=== PATIENT | female | born 1960 | race Caucasian/White ===

== ENCOUNTER 2016-11-30 20:10 | Emergency (ER) | payer BC ==
[2016-11-30] MEDS ORDERED: HYDROCHLOROTHIAZIDE 12.5 MG CAPSULE PO ONE (21:39)
[2016-11-30] MEDS ORDERED: PROMETHAZINE HCL 25 MG TABLET PO ONE (21:39)
[2016-11-30] MEDS ORDERED: LISINOPRIL 10 MG TABLET PO ONE (21:39)
[2016-11-30] MEDS ORDERED: HYDROCODONE/ACETAMINOPHEN 5-325 MG TABLET PO ONE (21:39)
--- NOTE | 2016-11-30 21:44 | ER Document Report ---
ED General - General Chief Complaint: Headache Stated Complaint: BLOOD PRESSURE PROBLEM Time Seen by Provider: 11/30/16 21:29 Notes: Patient is a 56 year old female that comes to the ED for chief complaint of elevated blood pressure and a headache. She also states she is getting over a cold. Symptoms began 4 days ago when she ran out of her lisinopril/HCTZ and prozac. She states that after coming to the ED her symptoms have actually significantly improved, states that she almost does not have a headache at all now. Patient denies dizziness, focal numbness or weakness, visual changes, chest pain, inability to urinate. Patient denies other past medical history other than hypertension and depression. TRAVEL OUTSIDE OF THE [place] IN LAST 30 DAYS: No - Related Data Allergies/Adverse Reactions: No Known Allergies Allergy (Unverified 11/30/16 20:34) Past Medical History - General Information source: Patient - Social History Smoking Status: Never Smoker Frequency of alcohol use: None Drug Abuse: None Lives with: Family Family History: Reviewed & Not Pertinent Patient has suicidal ideation: No Patient has homicidal ideation: No - Past Medical History Cardiac Medical History: Reports: Hx Hypertension Renal/ Medical History: Denies: Hx Peritoneal Dialysis Psychiatric Medical History: Reports: Hx Anxiety, Hx Depression Surgical Hx: Negative - Immunizations Hx Diphtheria, Pertussis, Tetanus Vaccination: Yes Review of Systems - Review of Systems Constitutional: No symptoms reported EENT: See HPI Cardiovascular: See HPI Respiratory: See HPI Gastrointestinal: No symptoms reported Genitourinary: No symptoms reported Female Genitourinary: No symptoms reported Musculoskeletal: No symptoms reported Skin: No symptoms reported Hematologic/Lymphatic: No symptoms reported Neurological/Psychological: See HPI Physical Exam - Vital signs Vitals: Temp Pulse BP Pulse Ox 98.3 F 69 195/91 H 96 11/30/16 20:34 11/30/16 20:34 11/30/16 20:34 11/30/16 20:34 Interpretation: Normal - General General appearance: Appears well, Alert In distress: None - Patient alert, well-appearing, talkative. - HEENT Head: Normocephalic, Atraumatic Eyes: Normal Conjunctiva: Normal Extraocular movements intact: Yes Eyelashes: Normal Pupils: PERRL Nasal: Normal Mouth/Lips: Normal Mucous membranes: Normal Pharynx: Normal Neck: Normal - Respiratory Respiratory status: No respiratory distress Chest status: Nontender. No: Tender Breath sounds: Normal. No: Decreased air movement Chest palpation: Normal - Cardiovascular Rhythm: Regular. No: Tachycardia Heart sounds: Normal auscultation, S1 appreciated, S2 appreciated Murmur: No - Abdominal Inspection: Normal Distension: No distension Bowel sounds: Normal Tenderness: Nontender. No: Tender Organomegaly: No organomegaly - Back Back: Normal, Nontender. 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 She does ask for something for her headache. Normal neurological exam. No concerning symptoms reported. Patient's blood pressure has already started reducing on its own. I am resuming her daily medication, giving dose now, provided a treatment for her symptoms now, refilling prescriptions (patient states she was supposed to be seen on Sunday but she was informed that this may be postponed because her provider might not make it on Sunday). Patient requesting to leave. Very low suspicion of aneurysm, cerebral hemorrhage, or other acute etiology. Discussed return precautions with patient. Patient states understanding and agreement. - Vital Signs Vital signs: Temp Pulse Resp BP Pulse Ox 98.1 F 69 16 162/89 H 99 11/30/16 21:30 11/30/16 20:34 11/30/16 21:30 11/30/16 21:30 11/30/16 21:30 Discharge - Discharge Clinical Impression: Hypertension Qualifiers: Hypertension type: essential hypertension Qualified Code(s): I10 - Essential ( primary) hypertension Headache Qualifiers: Headache type: unspecified Headache chronicity pattern: acute headache Intractability: not intractable Qualified Code(s): R51 - Headache Condition: Stable Disposition: HOME, SELF-CARE Additional Instructions: Please resume your daily medication as prescribed. Avoid stopping either medication suddenly if possible. Follow up with Primary Care. Return to the ED for any returned or new concerning symptoms. Prescriptions: Fluoxetine HCl [Prozac 20 mg Capsule] 20 mg PO DAILY #60 capsule Lisinopril/Hydrochlorothiazide [Lisinopril-Hctz 20-12.5 mg Tab] 1 each PO DAILY #60 tablet
[2016-11-30 22:04] VITALS: BP 162/89
== END 2016-11-30 21:30 | disposition home or self-care (01) ==
LOC: ER 20:10
DX: I10 Essential (primary) hypertension (principal); R51 Headache; T46.4X6A Underdosing of angiotensin-converting-enzyme inhibitors, initial encounter; T50.2X6A Underdosing of carbonic-anhydrase inhibitors, benzothiadiazides and other diuretics, initial encounter; F41.9 Anxiety disorder, unspecified; F32.9 Major depressive disorder, single episode, unspecified; T43.226A Underdosing of selective serotonin reuptake inhibitors, initial encounter; Z91.138 Patient's unintentional underdosing of medication regimen for other reason; Z91.14 Patient's other noncompliance with medication regimen
CPT/HCPCS: 99283

== ENCOUNTER → 2018-01-31 | Outpatient (CLI) | payer MEDICAID ==
--- NOTE | 2018-01-31 15:33 | RADIOLOGY REPORT (SQ) ---
EXAM DESCRIPTION: KNEE RIGHT 4 VIEWS COMPLETED DATE/TIME: 01/31/2018 1:49 pm REASON FOR STUDY: Chronic pain of both knees (M25.561) COMPARISON: None. NUMBER OF VIEWS: Four views. TECHNIQUE: AP, lateral, and both oblique radiographic images acquired of the right knee. LIMITATIONS: None. FINDINGS: MINERALIZATION: Normal. BONES: No acute fracture or dislocation. No worrisome bone lesions. JOINT: Marked narrowing of the lateral joint compartment with marginal osteophytes. Narrowing of the patellofemoral compartment with posterior patellar and trochlear osteophytes. No significant joint effusion. SOFT TISSUES: No soft tissue swelling. No radio-opaque foreign body. OTHER: No other significant finding. IMPRESSION: Significant degenerative joint changes. TECHNICAL DOCUMENTATION: JOB ID: [id number] [employer]- All Rights Reserved Reading location - IP/workstation name: [email or web address]
--- NOTE | 2018-01-31 15:34 | RADIOLOGY REPORT (SQ) ---
EXAM DESCRIPTION: KNEE LEFT 4 VIEWS COMPLETED DATE/TIME: 01/31/2018 1:49 pm REASON FOR STUDY: Chronic pain of both knees (M25.562) COMPARISON: None. NUMBER OF VIEWS: Four views. TECHNIQUE: AP, lateral, and both oblique radiographic images acquired of the left knee. LIMITATIONS: None. FINDINGS: MINERALIZATION: Normal. BONES: No acute fracture or dislocation. No worrisome bone lesions. JOINT: Narrowing of the medial and lateral joint compartments with marginal osteophytes. Prominent p osterior patellar and trochlear osteophytes. No significant joint effusion. SOFT TISSUES: No soft tissue swelling. No radio-opaque foreign body. OTHER: No other significant finding. IMPRESSION: Significant degenerative joint disease. TECHNICAL DOCUMENTATION: JOB ID: [id number] [employer]- All Rights Reserved Reading location - IP/workstation name: [email or web address]
== END ==
LOC: OD 11:40
PROVIDERS: ATTEND Family Medicine
DX: M25.562 Pain in left knee (principal); M25.561 Pain in right knee